=== PATIENT | male | born 1980 | race American Indian/Alaskan Native ===

== ENCOUNTER 2016-12-31 15:32 | Emergency (ER) | payer SELFPAY ==
[2016-12-31 15:43] VITALS: BP 131/82
--- NOTE | 2016-12-31 16:07 | Emergency Department Report ---
ED Extremity Problem HPI - General Chief complaint: Skin Rash Stated complaint: RT FOOT PAIN Time Seen by Provider: 12/31/16 15:46 Source: patient Mode of arrival: Ambulatory Limitations: No Limitations - History of Present Illness Initial comments: pt states about a month ago, he was walking and his foot kept sliding in his shoe. PT states he developed a blister that turned into a growth. PT denies fevers, chills -: Gradual, month(s) (1) Location: right, lower extremity (foot ) History of Same: No Severity scale (0 -10): 2 Consistency: constant Improves with: nothing Worsens with: weight bearing, walking - Related Data Previous Rx's Medication Instructions Recorded Last Taken Type Ibuprofen [Motrin] 600 mg PO Q8H PRN #15 tablet 12/31/16 Unknown Rx Allergies Allergy/AdvReac Type Severity Reaction Status Date / Time No Known Allergies Allergy Unverified 12/31/16 15:37 ED Review of Systems ROS: Stated complaint: RT FOOT PAIN Other details as noted in HPI Comment: All other systems reviewed and negative Constitutional: denies: fever Musculoskeletal: as per HPI. denies: joint swelling Skin: as per HPI. denies: change in color Neurological: denies: abnormal gait ED Past Medical Hx - Past Medical History Previous Medical History?: No - Surgical History Past Surgical History?: No - Social History Smoking Status: Current Every Day Smoker Substance Use Type: None - Medications Home Medications: Home Medications Medication Instructions Recorded Confirmed Last Taken Type Ibuprofen [Motrin] 600 mg PO Q8H PRN #15 tablet 12/31/16 Unknown Rx ED Physical Exam - General Limitations: No Limitations General appearance: alert, in no apparent distress - Head Head exam: Present: atraumatic, normocephalic - Eye Eye exam: Present: normal appearance. Absent: conjunctival injection - ENT ENT exam: Present: normal exam, normal external ear exam - Neck Neck exam: Present: normal inspection, full ROM - Respiratory Respiratory exam: Absent: respiratory distress, accessory muscle use - Cardiovascular Cardiovascular Exam: Present: regular rate, normal rhythm - Extremities Exam Extremities exam: Present: full ROM. Absent: tenderness, pedal edema, joint swelling - Expanded Lower Extremity Exam Right Ankle exam: Present: normal inspection, full ROM. Absent: tenderness Foot/Toe exam: Present: full ROM. Absent: normal inspection (hard thick growth to the plantar aspect of the R foot. + tenderness to palpation ), tenderness, swelling, puncture wound, foreign body, calcaneal tenderness, tenderness at base of 5th metatarsal Neuro vascular tendon exam: Present: no vascular compromise. Absent: pulse deficit Gait: Positive: observed and normal - Back Exam Back exam: Present: normal inspection, full ROM - Neurological Exam Neurological exam: Present: alert, oriented X3, normal gait - Psychiatric Psychiatric exam: Present: normal affect, normal mood - Skin Skin exam: Present: warm, dry, intact ED Course Vital Signs 12/31/16 15:39 Temperature 98.6 F Pulse Rate 62 Respiratory 15 Rate Blood Pressure 131/82 O2 Sat by Pulse 98 Oximetry - Reevaluation(s) Reevaluation #1: 12/31/16 16:07 PT aware of dx and plan of care. - Pulse Oximetry Interpretation Digit-Finger Initial Pulse Oximetry Readin Actions Taken: none ED Medical Decision Making - Differential Diagnosis callous, plantar wart, Critical Care Time: No Critical care attestation.: If time is entered above; I have spent that time in minutes in the direct care of this critically ill patient, excluding procedure time. ED Disposition Clinical Impression: Plantar wart of right foot Disposition: DC-01 TO HOME OR SELFCARE Is pt being admited?: No Does the pt Need Aspirin: No Condition: Stable Instructions: Plantar Wart (ED) Additional Instructions: Follow up with Dermatology or Podiatry for the lesion on your foot OTC wart remover might help Prescriptions: Ibuprofen [Motrin] 600 mg PO Q8H PRN #15 tablet PRN Reason: Pain Referrals: ARMANDO HODGE DPM [Staff Physician] - 3-5 Days YARON JOHNSON MD [Staff Physician] - 3-5 Days JOE ISAAC MD [Staff Physician] - 3-5 Days Forms: Work/School Release Form(ED) Time of Disposition: 16:08
== END 2016-12-31 16:15 | disposition home or self-care (01) ==
LOC: ED 15:32
DX: B07.0 Plantar wart (principal); F17.200 Nicotine dependence, unspecified, uncomplicated
CPT/HCPCS: 99281

== ENCOUNTER 2017-03-09 21:49 | Emergency (ER) | payer SELFPAY ==
[2017-03-10 01:15] LABS: Bilirubin,Urine NEG (Negative); Blood,Urine NEG (Negative); Ketones,Urine NEG (Negative); Leukocyte Esterase,Urine NEG (Negative); Nitrite,Urine NEG (Negative); Protein,Urine <15 mg/dL mg/dL (Negative); Urobilinogen,Urine < 2.0 mg/dL (<2.0); WBC,Urine < 1.0 /HPF (0.0-6.0)
--- NOTE | 2017-03-10 02:49 | Emergency Department Report ---
ED Male HPI - General Chief complaint: Urogenital-Male Stated complaint: STD Time Seen by Provider: 03/10/17 02:48 Source: patient Mode of arrival: Ambulatory Limitations: No Limitations - History of Present Illness Initial comments: Patient here report that he slept with a person and the condom rested and now he wants to be checked for HIV. He states that he slept with person 3-4 days ago and the person told them that they did not have any STD but he is concerned because he said he stepped out and he doesn't want to bring anything home. He is concerned about all STD and requesting STD checks. Patient is asymptomatic at this point. As any urinary burning frequency or urgency. Denies any fever or chills. Denies any nausea or vomiting. Denies any penile or testicular pain. Denies any penile discharge. Denies any abdominal or back pain. Denies any blood in his urine. MD Complaint: other (concern for STD) Radiation: none Severity scale (0 -10): 0 new sexual partner denies: discharge, swelling, mass, rash, urinary retention, blood in urine, dysuria, fever, nausea/vomiting, incontinence - Related Data Sexually active: Yes (unsafe sex) Previous Rx's Medication Instructions Recorded Last Taken Type Ibuprofen [Motrin] 600 mg PO Q8H PRN #15 tablet 12/31/16 Unknown Rx Allergies Allergy/AdvReac Type Severity Reaction Status Date / Time No Known Allergies Allergy Unverified 12/31/16 15:37 ED Review of Systems ROS: Stated complaint: STD Other details as noted in HPI Comment: All other systems reviewed and negative Constitutional: no symptoms reported Respiratory: no symptoms reported Cardiovascular: denies: chest pain, palpitations, dyspnea on exertion, edema, syncope Gastrointestinal: denies: abdominal pain, nausea, vomiting, diarrhea, constipation, hematemesis, melena, hematochezia Genitourinary: other (concern for STD). denies: urgency, dysuria, frequency, hematuria, discharge, testicular pain, testicular mass Musculoskeletal: denies: back pain, joint swelling, arthralgia, myalgia Skin: denies: rash Neurological: denies: headache, weakness, numbness, paresthesias, confusion, abnormal gait, vertigo ED Past Medical Hx - Past Medical History Previous Medical History?: No - Surgical History Past Surgical History?: No - Family History Family history: no significant - Social History Smoking Status: Current Every Day Smoker Substance Use Type: None, Marijuana - Medications Home Medications: Home Medications Medication Instructions Recorded Confirmed Last Taken Type Ibuprofen [Motrin] 600 mg PO Q8H PRN #15 tablet 12/31/16 Unknown Rx ED Physical Exam - General Limitations: No Limitations General appearance: alert, in no apparent distress - Head Head exam: Present: atraumatic, normocephalic, normal inspection - Eye Eye exam: Present: normal appearance, PERRL, EOMI Pupils: Present: normal accommodation - ENT ENT exam: Present: normal exam, normal orophraynx, mucous membranes moist, TM's normal bilaterally, normal external ear exam - Neck Neck exam: Present: normal inspection, full ROM, other (no C-spine tenderness). Absent: tenderness, meningismus, lymphadenopathy - Respiratory Respiratory exam: Present: normal lung sounds bilaterally. Absent: respiratory distress, chest wall tenderness - Cardiovascular Cardiovascular Exam: Present: regular rate, normal rhythm, normal heart sounds. Absent: systolic murmur, diastolic murmur - GI/Abdominal GI/Abdominal exam: Present: soft, normal bowel sounds. Absent: distended, tenderness, rigid - Extremities Exam Extremities exam: Present: normal inspection, full ROM, normal capillary refill , other (the clubbing cyanosis or edema. +2 pulses to all extremities. No neurovascular compromise). Absent: tenderness, pedal edema, joint swelling, calf tenderness - Back Exam Back exam: Present: normal inspection, full ROM. Absent: tenderness, CVA tenderness (R), CVA tenderness (L), muscle spasm, paraspinal tenderness, vertebral tenderness, rash noted - Neurological Exam Neurological exam: Present: alert, oriented X3, normal gait, reflexes normal. Absent: motor sensory deficit - Psychiatric Psychiatric exam: Present: normal affect, normal mood - Skin Skin exam: Present: warm, dry, intact, normal color. Absent: rash ED Course Vital Signs 03/09/17 03/09/17 21:52 22:05 Temperature 98.3 F 98.3 F Pulse Rate 75 72 Respiratory 18 18 Rate Blood Pressure 132/92 132/92 O2 Sat by Pulse 99 99 Oximetry - Reevaluation(s) Reevaluation #1: 03/10/17 03:29 Patient had uneventful ED stay. Urinalysis negative for bacterial infection. Urine for gonorrhea and chlamydia suspended ED Medical Decision Making - Lab Data Lab Results 03/09/17 Range/Units Unknown Urine Color Yellow (Yellow) Urine Turbidity Clear (Clear) Urine pH 6.0 (5.0-7.0) Ur Specific Fischer 1.014 (1.003-1.030) Urine Protein <15 mg/dl (Negative) mg/dL Urine Glucose (UA) Neg (Negative) mg/dL Urine Ketones Neg (Negative) mg/dL Urine Blood Neg (Negative) Urine Nitrite Neg (Negative) Urine Bilirubin Neg (Negative) Urine Urobilinogen < 2.0 (<2.0) mg/dL Ur Leukocyte Esterase Neg (Negative) Urine WBC (Auto) < 1.0 (0.0-6.0) /HPF Urine RBC (Auto) 2.0 (0.0-6.0) /HPF Gonorrhea and chlamydia test pending - Medical Decision Making ED course:Male here requesting STD testing. Urinalysis is negative for any bacterial infection, urine gonorrhea and chlamydia pending. Patient is not having any penile discharge or any symptoms. I discussed the patient sats urine sent for gonorrhea and chlamydia and will be back in 5-7 days. I discussed with him that he can go to clinic [facility] health Department and and to have STD testing done but usually if he is worried about HIV does not usually show up and can take up to 6 weeks to a year to become positive in system. I expressed the patient that if he is concerned that he might have come in contact with that then he will need to get frequent tests. Patient has been exposed for over 72 hours going on for days and I explained to him that he is out of the window for postexposure therapy. Patient said that he didn't know if he was exposed and the personalities with said that they don' t have HIV and other STD he said he just wanted to be careful because he was not with his regular partner and he doesn't want to bring anything home. Patient chose to wait to be treated for any STD until he's tested And he also chose to wait until gonorrhea and chlamydia test this resulted. Patient discharged home and consult on safe sex and I also instructed him that if he is concerned about that and he will need to use a condom with his partner at home and also inform his partner at home that he came to the hospital because he was concerned about sexually transmitted disease. He was undescended discharged home in stable condition. Critical care attestation.: If time is entered above; I have spent that time in minutes in the direct care of this critically ill patient, excluding procedure time. ED Disposition Clinical Impression: Concern about STD in male without diagnosis, Sexually transmitted disease (STD) Disposition: DC-01 TO HOME OR SELFCARE Is pt being admited?: No Does the pt Need Aspirin: No Condition: Stable Instructions: Sexually Transmitted Diseases (ED), Safe Sex (ED) Additional Instructions: Please practice safe sex You can go to clinic: [facility] she is visiting for free HIV tested Please inform you partner that you had unsafe sex and unsure if you were exposed to STD Gonorrhea and chlamydia tests was done today in emergency room and it usually takes 5-7 days to be resulted. If you do not get a call from us within 5-7 days , please present to medical records department we twice a day to get test result. [facility] - [facility]-3 Days Forms: Accompanied Note, Work/School Release Form(ED)
[2017-03-10 11:39] VITALS: BP 149/79
== END 2017-03-10 04:00 | disposition home or self-care (01) ==
LOC: ED 21:49
DX: A64 Unspecified sexually transmitted disease (principal); F17.210 Nicotine dependence, cigarettes, uncomplicated; F12.10 Cannabis abuse, uncomplicated
CPT/HCPCS: 81001; 99283